=== PATIENT | male | born 1950 | race American Indian/Alaskan Native ===

== ENCOUNTER 2017-01-12 12:20 | Emergency (ER) | payer OTHER ==
[2017-01-12 13:54] LABS: Basophils % (Auto) 0.5 % (0.0-1.8); Eosinophils % (Auto) 6.5 % (0.0-4.3); Hematocrit 44.6 % (35.5-45.6); Hemoglobin 15.1 gm/dl (11.8-15.2); Mean Corpuscular HGB Conc 34 % (32-34); Mean Corpuscular Hemoglobin 30 pg (28-32); Mean Corpuscular Volume 87 fl (84-94); Platelet Count 126 K/mm3 (140-440); Red Blood Count 5.11 M/mm3 (3.65-5.03); Red Cell Distribution Width 13.6 % (13.2-15.2); White Blood Count 6.4 K/mm3 (4.5-11.0)
[2017-01-12 14:07] LABS: Anion Gap 20 mmol/L; BUN/Creatinine Ratio 12.72; Blood Urea Nitrogen 14 mg/dL (9-20); Calcium 9.2 mg/dL (8.4-10.2); Carbon Dioxide 23 mmol/L (22-30); Chloride 96.3 mmol/L (98-107); Glucose 326 mg/dL (75-100); Potassium 4.3 mmol/L (3.6-5.0); Sodium 135 mmol/L (137-145)
[2017-01-12] MEDS ORDERED: NORVASC PO ONE (23:24)
[2017-01-12] MEDS ORDERED: PERCOCET 5/325 PO ONE (23:24)
[2017-01-12] MEDS ORDERED: TORADOL IV ONE (23:24)
[2017-01-12 23:49] VITALS: BP 178/96
--- NOTE | 2017-01-13 00:42 | Emergency Department Report ---
ED General Adult HPI - General Chief complaint: Hyperglycemia Stated complaint: SHOULDER/ARM PAIN Time Seen by Provider: 01/12/17 22:19 Source: patient Mode of arrival: Ambulatory Limitations: No Limitations - History of Present Illness Initial comments: 66-year-old male with a past medical history of asthma and diabetes (currently on insulin) presents to the hospital with elevated sugar and left upper chest and shoulder pain. Patient has been out of his blood pressure and insulin for the past 2 weeks. Patient experienced shooting pain from his neck down to bilateral hands. Patient states he has chronic decreased sensation to his left leg and the right BKA. No injury or, reported. Pain is constant, aching, worse with palpation to the left upper chest and left-sided neck. No weakness reported. Severity scale (0 -10): 7 - Related Data Previous Rx's Medication Instructions Recorded Last Taken Type Ibuprofen [Motrin] 800 mg PO Q8HR PRN #30 tablet 01/13/17 Unknown Rx Lantus VIAL 10 units SC QDAY 30 Days 01/13/17 Unknown Rx Lisinopril/Hydrochlorothiazide 5 mg PO TID #90 01/13/17 Unknown Rx oxyCODONE /ACETAMINOPHEN [Percocet 1 tab PO Q6HR PRN #20 tablet 01/13/17 Unknown Rx 5/325] Allergies Allergy/AdvReac Type Severity Reaction Status Date / Time Penicillins AdvReac Hives Verified 01/12/17 23:41 propoxyphene HCl AdvReac Hives Verified 01/12/17 23:41 [From [facility]] ED Review of Systems ROS: Stated complaint: SHOULDER/ARM PAIN Other details as noted in HPI Comment: All other systems reviewed and negative Other: Constitutional: No fevers chills Eyes: No eye pain visual changes ENT: No ear pain or throat pain Neck: Denies pain Respiratory: Denies cough wheezing shortness of breath Cardiovascular: Denies palpitations, syncope GI: Denies abdominal pain, nausea, vomiting, diarrhea : Denies dysuria Musculoskeletal: As per HPI Skin: Denies rash, lesions, erythema Neurologic: Denies headache Psychiatric: Denies suicidal ideation, hallucinations ED Past Medical Hx - Past Medical History Hx Hypertension: Yes Hx Diabetes: Yes - Surgical History Past Surgical History?: Yes Additional Surgical History: Right BKA - Social History Smoking Status: Current Every Day Smoker Substance Use Type: None - Medications Home Medications: Home Medications Medication Instructions Recorded Confirmed Last Taken Type Ibuprofen [Motrin] 800 mg PO Q8HR PRN #30 tablet 01/13/17 Unknown Rx Lantus VIAL 10 units SC QDAY 30 Days 01/13/17 Unknown Rx Lisinopril/Hydrochlorothiazide 5 mg PO TID #90 01/13/17 Unknown Rx oxyCODONE /ACETAMINOPHEN [Percocet 1 tab PO Q6HR PRN #20 tablet 01/13/17 Unknown Rx 5/325] ED Physical Exam - General Limitations: No Limitations - Other Other exam information: General: No limitations, patient is alert in no acute distress Head exam: Atraumatic, normocephalic Eyes exam: Normal appearance ENT: Moist mucous membrane, normal oropharynx Neck exam: Normal inspection, full range of motion, tenderness to left sternocleidomastoid to palpation and with movement Respiratory exam: Clear to auscultation bilateral, no wheezes, rales, crackles Cardiovascular: Normal rate and rhythm, tenderness to left upper chest wall extending to shoulder, pain with movement of shoulder Abdomen: Soft, nondistended, and nontender, with normal bowel sounds, no rebound, or guarding Extremity: Full range of motion normal inspection no deformity Back: Normal Inspection, full range of motion, no tenderness Neurologic: Alert, oriented x3, cranial nerves intact, no motor or sensory deficit Psychiatric: normal affect, normal mood Skin: Warm, dry, intact ED Course Vital Signs 01/12/17 01/12/17 01/12/17 13:27 21:32 22:15 Temperature 97.8 F 98.0 F Pulse Rate 87 87 84 Respiratory 20 18 20 Rate Blood Pressure 170/96 Blood Pressure 189/104 178/95 [Right] O2 Sat by Pulse 100 97 Oximetry 01/12/17 01/12/17 01/12/17 22:45 23:48 23:53 Temperature Pulse Rate 86 82 Respiratory 20 18 18 Rate Blood Pressure 178/96 Blood Pressure 186/87 [Right] O2 Sat by Pulse 96 Oximetry - Reevaluation(s) Reevaluation #1: 01/13/17 00:44 Glucose improved with insulin. Norvasc 10 provided for blood pressure. glucose 123 ED Medical Decision Making - Lab Data Result diagrams: 01/12/17 13:33 01/12/17 13:33 Lab Results 01/12/17 01/12/1717 Range/Units 13:23 13:33 13:33 WBC 6.4 (4.5-11.0) K/mm3 RBC 5.11 H (3.65-5.03) M/mm3 Hgb 15.1 (11.8-15.2) gm/dl Hct 44.6 (35.5-45.6) % MCV 87 (84-94) fl MCH 30 (28-32) pg MCHC 34 (32-34) % RDW 13.6 (13.2-15.2) % Plt Count 126 L (140-440) K/mm3 Lymph % (Auto) 18.2 (13.4-35.0) % Mchenry % (Auto) 5.1 (0.0-7.3) % Eos % (Auto) 6.5 H (0.0-4.3) % Baso % (Auto) 0.5 (0.0-1.8) % Lymph # 1.2 (1.2-5.4) K/mm3 Mchenry # 0.3 (0.0-0.8) K/mm3 Eos # 0.4 (0.0-0.4) K/mm3 Baso # 0.0 (0.0-0.1) K/mm3 Seg Neutrophils % 69.7 (40.0-70.0) % Seg Neutrophils # 4.5 (1.8-7.7) K/mm3 VBG pH (7.320-7.420) Sodium 135 L (137-145) mmol/L Potassium 4.3 (3.6-5.0) mmol/L Chloride 96.3 L (98-107) mmol/L Carbon Dioxide 23 (22-30) mmol/L Anion Gap 20 mmol/L BUN 14 (9-20) mg/dL Creatinine 1.1 (0.8-1.5) mg/dL Estimated GFR > 60 ml/min BUN/Creatinine Ratio 12.72 % Glucose 326 H (75-100) mg/dL POC Glucose 307 H (70-105) Calcium 9.2 (8.4-10.2) mg/dL 01/12/17 01/12/17 01/12/17 Range/Units 13:33 21:26 22:22 WBC (4.5-11.0) K/mm3 RBC (3.65-5.03) M/mm3 Hgb (11.8-15.2) gm/dl Hct (35.5-45.6) % MCV (84-94) fl MCH (28-32) pg MCHC (32-34) % RDW (13.2-15.2) % Plt Count (140-440) K/mm3 Lymph % (Auto) (13.4-35.0) % Mchenry % (Auto) (0.0-7.3) % Eos % (Auto) (0.0-4.3) % Baso % (Auto) (0.0-1.8) % Lymph # (1.2-5.4) K/mm3 Mchenry # (0.0-0.8) K/mm3 Eos # (0.0-0.4) K/mm3 Baso # (0.0-0.1) K/mm3 Seg Neutrophils % (40.0-70.0) % Seg Neutrophils # (1.8-7.7) K/mm3 VBG pH 7.362 (7.320-7.420) Sodium (137-145) mmol/L Potassium (3.6-5.0) mmol/L Chloride (98-107) mmol/L Carbon Dioxide (22-30) mmol/L Anion Gap mmol/L BUN (9-20) mg/dL Creatinine (0.8-1.5) mg/dL Estimated GFR ml/min BUN/Creatinine Ratio % Glucose (75-100) mg/dL POC Glucose 269 H 293 H (70-105) Calcium (8.4-10.2) mg/dL - Medical Decision Making Plan discharge patient home with outpatient follow-up and medication refills. Patient had a left-sided neck, chest, and shoulder musculoskeletal pain and uncontrolled diabetes hypertension secondary to noncompliance - Differential Diagnosis DKA, hyperglycemia, hypertensive urgency/emergency, strain, neuropathy Critical Care Time: No Critical care attestation.: If time is entered above; I have spent that time in minutes in the direct care of this critically ill patient, excluding procedure time. ED Disposition Clinical Impression: Hyperglycemia, Noncompliance with medication regimen, HTN (hypertension), Neck strain, Neuropathy Disposition: TO HOME OR SELFCARE Is pt being admited?: No Does the pt Need Aspirin: No Condition: Fair Instructions: Hypertension (ED), Diabetes Mellitus Type 2 in Adults (ED), Cervical Sprain (ED), Diabetic Neuropathy (ED) Additional Instructions: Take the medication as prescribed. Follow up with your doctor to doctor provided. Return if symptoms worsen. Prescriptions: Ibuprofen [Motrin] 800 mg PO Q8HR PRN #30 tablet PRN Reason: Pain Lantus VIAL 10 units SC QDAY 30 Days Lisinopril/Hydrochlorothiazide 5 mg PO TID #90 oxyCODONE /ACETAMINOPHEN [Percocet 5/325] 1 tab PO Q6HR PRN #20 tablet PRN Reason: Pain Referrals: PRIMARY MD MIKO [Primary Care Provider] - 3-5 Days [facility] [Provider Group] - 3-5 Days SILAS DE ANDA MD [Staff Physician] - 3-5 Days [facility] [place] [Outside] - 3-5 Days Time of Disposition: 00:51
== END 2017-01-13 01:06 | disposition home or self-care (01) ==
LOC: ED 12:20
DX: E11.65 Type 2 diabetes mellitus with hyperglycemia (principal); E11.40 Type 2 diabetes mellitus with diabetic neuropathy, unspecified; I10 Essential (primary) hypertension; S16.1XXA Strain of muscle, fascia and tendon at neck level, initial encounter; R07.89 Other chest pain; M25.512 Pain in left shoulder; F17.210 Nicotine dependence, cigarettes, uncomplicated; Z91.14 Patient's other noncompliance with medication regimen; Z88.0 Allergy status to penicillin; Z88.8 Allergy status to other drugs, medicaments and biological substances; Z89.511 Acquired absence of right leg below knee; X58.XXXA Exposure to other specified factors, initial encounter; Y93.89 Activity, other specified; Y92.89 Other specified places as the place of occurrence of the external cause; Y99.8 Other external cause status
CPT/HCPCS: 36415; 80048; 82805; 82962; 85025; 96374; 96375; 99284; J1885; J1815